=== PATIENT | female | born 1935 | race Caucasian/White ===

== ENCOUNTER 2017-04-23 15:17 | Observation (INO) ==
[~2017-04-23 15:17] MED LIST: ZOFRAN IV PRN
--- NOTE | 2017-04-23 16:05 | Diag Imaging Result Doc PS360 ---
EXAM: MRI LUMBAR SPINE W/O CONTRAST HISTORY: Acute LS pain after fall off bed with L2 fx? TECHNIQUE: Axial and sagittal images obtained in multiple sequences. COMPARISON: 08/25/2014 FINDINGS: There is abnormal signal within the superior endplates of the L1 and L2 vertebra. Mild loss of height to the superior endplate of the L2 vertebra. No definite loss of height to the L1 vertebra. No subluxation. Good alignment on the sagittal images. T12-L1: Normal disc. No spinal stenosis or cord compression. Neither neural foramen is narrowed. L1-2: Minimal disc bulge. There is at least moderate bilateral facet hypertrophy. This results in moderate spinal stenosis. Minimal narrowing of each neural foramen. L2-3: Small disc bulge. Moderate bilateral facet hypertrophy. There is moderate spinal stenosis with minimal narrowing of each neural foramen. L3-4: Questionable 1 to 2 mm of subluxation. There is severe bilateral facet hypertrophy. Moderate right lateral disc bulge. Findings result in severe spinal stenosis as well as moderate narrowing of the right neural foramen. L4-5: Prominent disc bulge. There is moderate bilateral facet hypertrophy. Findings result in severe spinal stenosis. There is moderate to marked narrowing of each neural foramen. L5-S1: Moderate disc bulge. There is narrowing to the disc space. No significant spinal stenosis. There is at least moderate narrowing of the right neural foraminal mild narrowing of the left foramen IMPRESSION: 1.Recent superior endplate compression fractures to the L1 and L2 vertebra. 2.Severe spinal stenosis at L3-4 and L4-5. Electronically signed by Hawk Hampton 04/23/2017 4:03 PM
[2017-04-23] MEDS: NORCO-7.5 PO PRN ×2 (17:10→21:22)
[2017-04-23] MEDS: POTASSIUM CHLORIDE 10 MEQ in NS 1,000 ML IV SCH (17:56)
[2017-04-23] MEDS ORDERED: MIRALAX PO ONE (18:57)
--- NOTE | 2017-04-23 20:11 | Diag Imaging Result Doc PS360 ---
EXAM: PELVIS W/O CONTRAST HISTORY: Fall from 5+ feet left posterior gluetal pain TECHNIQUE: CT pelvis without contrast. COMPARISON: None. FINDINGS: Neither femoral head is dislocated. No fracture to either hip. No widening to the pubic symphysis or to the sacroiliac joints. There is a vacuum disc at L5-S1 and there are degenerative changes to the lower lumbar spine. There are two left adnexal cysts. The largest measures 7.7 cm and the smaller measures 7.2 cm. There is a right adnexal cyst measuring 4.8 cm. Uterus has been removed. The bowel loops and pelvis are not dilated. The muscles about the bony pelvis are symmetric except for increased density in the left gluteal region which may represent a hematoma. IMPRESSION: 1.Small left gluteal hematoma, but no acute fracture. 2.Large bilateral adnexal cysts 3.Hysterectomy Electronically signed by Hawk Hampton 04/23/2017 8:08 PM
[2017-04-23] MEDS ORDERED: AMBIEN PO SCH (21:00)
[2017-04-23] MEDS ORDERED: PERICOLACE PO SCH (21:00)
[2017-04-24] MEDS: NORCO-7.5 PO PRN ×2 (05:40→11:12)
[2017-04-24 06:30] LABS: MANUAL DIFF NEEDED? NO
[2017-04-24 06:41] LABS: BASO% 0.6 % (0.0-0.8); EOS# 0.48 X1000 (0.0-0.7); EOS% 5.1 % (0.0-10.0); HEMATOCRIT 33.1 % (37.0-47.0); HEMOGLOBIN 11.2 g/dL (12.0-16.0); LYMPH# 0.56 X1000 (1.2-3.4); LYMPH% 5.9 % (20.5-51.1); MCH 31.5 PG (27-31); MCHC 33.8 g/dL (33-37); MONO# 0.59 X1000 (0.11-0.59); MONO% 6.2 % (1.7-9.3); MPV 10.1 FL (7.4-10.4); NEUT% 82.2 % (42.2-75.2); PLT 249 X1000 (130-400); RBC 3.56 XMIL (4.2-5.4)
--- NOTE | 2017-04-24 06:46 | HISTORY AND PHYSICAL ---
CHIEF COMPLAINT: Low back pain following a fall. HISTORY OF PRESENT ILLNESS: Ms. Acuña is a 81-year-old patient with a past medical history consistent with thyroid nodularity, nontoxic goiter, dyslipidemia, insomnia, idiopathic neuropathy, hypertension, atherosclerotic peripheral vascular disease involving the carotid system, venous insufficiency, diverticular disease, stress incontinence, climacteric state, family history of malignant neoplasm of the digestive organs, family history of malignant neoplasm of the kidney, family history of diabetes, personal history of impaired fasting glucose , impaired glucose tolerance, who presents less than 24 hours after a fall off of a bed while trying to change the rotational direction of a ceiling fan. She states that she was standing on her bed and lost her balance and fell, striking her left hip. It resulted in a large gluteal hematoma, difficulty with weightbearing, and excruciating mid to upper lumbar pain. An x-ray in the office demonstrates concavity of the L2 vertebrae, which is a new finding compared to previous lumbosacral spine films, as well as advanced degenerative changes throughout the lumbosacral spine , which is known historically. The patient also carries a diagnosis of spinal stenosis, which has been noted to be nonoperative historically. She is admitted to the Internal Medicine clinic for observation, further diagnostic workup, and orthopedic consultation, should an MRI be consistent with L1-L2 fracture. MEDICATIONS ON ADMISSION: Amitriptyline 25 mg p.o. at bedtime, valacyclovir 500 mg p.o. daily, valsartan hydrochlorothiazide 160/12.5 one p.o. b.i.d., estradiol 0.5 mg p.o. every other day, Pravachol 40 mg p.o. at bedtime, metformin 500 mg p.o. b.i.d., Ambien 5 mg p.o. at bedtime, and bisoprolol-hydrochlorothiazide 6.25/5 mg once daily. FAMILY HISTORY: Father , 60 years old, aortic aneurysmal disease. Mother , 83, secondary to liver cancer. Brother from pancreatic, kidney, and lung cancers, and one secondary to COPD. A sister at 74 years old secondary to lung cancer. SOCIAL STATUS: Patient is , with 2 children. Daughter at 61, son at 50 , and one adopted grandchild. 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 She is a nonsmoker. She drinks approximately 3+ drinks per month. HEALTH MAINTENANCE: Last colonoscopy in 2010. Last DEXA scan in 2013. Last EGD in 2010. Last eye exam in 2015. Last mammogram, 2014. Last Pap smear, 2012. Last annual exam, 01/30/2017. PHYSICAL EXAMINATION: VITAL SIGNS: In the office: Blood pressure 144/70, pulse at 92, saturating 98 % on room air. Temperature 99.6 degrees. Patient is 201 pounds, with a BMI of 31.95. HEENT: Normocephalic, atraumatic. Pupils are equal and reactive to light and accommodation. NECK: Soft and supple, without lymphadenopathy or bruits. CARDIOVASCULAR: Regular rate and rhythm, without murmurs, gallops, or rubs. LUNGS: Clear. ABDOMEN: Not assessed, secondary to patient's difficulty with lying flat. MUSCULOSKELETAL: Percussion of the lower thoracic and lumbosacral spine are negative for percussive tenderness. Paraspinal spasm and tenderness is noted on palpation. Patient with large area of ecchymosis on the left lateral gluteal region. Regional extension, flexion, side-bending, and rotation is not assessed secondary to pain. Patient is able to independently rise from a seated position with difficulty and discomfort. She is in a moderate amount of pain. RADIOLOGICAL STUDIES: Show a scallop deformity of the superior endplate of L2, as well as advanced degenerative changes throughout the lumbosacral spine. Changes are suspicious for occult/recent fracture. An MRI at the hospital on admission demonstrates evidence of recent and/or acute L1-L2 fracture, as well as extensive multilevel lumbosacral spinal stenosis. IMPRESSION: Acute fracture, L1-L2. Pain management as indicated. Patient is markedly improved with the addition of oral narcotics. We will follow through the evening with regards to scheduled pain medicines, and seek the opinion of orthopedics, as it relates to fitting for a thoracolumbar brace. I do not feel that these warrant kyphoplasty or surgical intervention, but certainly in the acute phase, she may have some issues with pain and mobility. She is inquiring about the possibility of home healthcare for post admission assistance. She is agreeable to spend the night here with anticipation of being discharged in the morning after overnight observation and ongoing pain management. The patient understands the course of treatment and plan. No further issues at this time. Note is dictated on the evening of admission. Patient seen in office 45minutes and then more than 30 minutes after admission to discuss MRI findings, dictation and clarify/review admission orders OV + PS. 04/24/2017 at 6:56am cc: DO VALERY Soto
[2017-04-24 06:55] LABS: INR 1.02; PROTIME 10.7 Seconds (9.2-11.7)
[2017-04-24 07:00] LABS: AGAP 12; ALBUMIN 3.8 g/dL (3.5-5.0); ALKALINE PHOSPHATASE 64 U/L (32-104); BUN 16 mg/dL (8-22); CALCIUM 8.1 mg/dL (8.8-10.2); CHLORIDE 99 mmol/L (98-107); COSMO 274; GOT 22 U/L (10-30); GPT 16 U/L (10-36); POTASSIUM 3.9 mmol/L (3.5-5.1); SODIUM 136 mmol/L (136-145); TCO2 25 mmol/L (25-35); TOTAL BILIRUBIN 0.86 mg/dL (0.20-1.00); TOTAL PROTEIN 6.1 g/dL (6.3-8.3)
[2017-04-24 07:59] VITALS: BP 121/59
[2017-04-24] MEDS: POTASSIUM CHLORIDE 10 MEQ in NS 1,000 ML IV SCH (08:34)
[2017-04-24] MEDS ORDERED: ELAVIL PO SCH (09:00)
[2017-04-24] MEDS ORDERED: ZIAC 5/6.25 MG PO SCH (09:00)
[2017-04-24] MEDS ORDERED: VALTREX PO SCH (09:00)
[2017-04-24] MEDS ORDERED: GLUCOPHAGE XR PO SCH (09:00)
--- NOTE | 2017-04-24 15:44 | CONSULTATION ---
DATE OF CONSULTATION: 04/24/2017 CHIEF COMPLAINT: Low back pain. HISTORY OF PRESENT ILLNESS: Ms. Acuña is a 81-year-old female who is experiencing low back pain following a fall in her home yesterday. She presented to primary care provider, Internal Medicine Clinic where further evaluation radiographic findings revealed a concavity of the L2 vertebrae. She was admitted for observation and further workup and during her admission she has had an MRI which is consistent with an L1 and L2 compression fracture that is stable and we were asked for further evaluation. Primary Care provider, Serge Stein. For allergies, past medical history, past surgical history, and current medications, see the admission history and physical. REVIEW OF SYSTEMS: A 10 point review of systems was reviewed with the patient and was otherwise negative other than what was stated in HPI. PHYSICAL EXAMINATION: General: Is a well-developed, well-nourished female, who is in no acute distress. She is alert and oriented, and able to articulate and answer all questions fully. HEENT: Head is normocephalic, atraumatic. Neck: Supple. Cardiovascular: She has 2+ pedal pulses. Lungs: Respirations are nonlabored. Abdomen: Nondistended. Musculoskeletal: She has pain with palpation of the lumbar spine but there are no step-offs noted. She has 5/5 strength of her lower extremities. Neurological: She discerned soft touch to her feet bilaterally. IMPRESSION: Stable L1 and L2 compression fractures. PLAN: We will order a lumbar corset for her to wear for comfort. Her MRI reveals that her compression fractures are stable and there was no loss of height that is significant. I have instructed her to follow up with Neurosurgery upon discharge home for further care. Dictated by RAMANDEEP Tucker for Shivam Macdonald MD cc: RAMANDEEP Tucker MD Jeffrey A. Johnson, DO
--- NOTE | 2017-05-02 17:06 | DISCHARGE SUMMARY ---
ADMISSION DATE: 04/23/2017 DISCHARGE DATE: 04/24/2017 DISCHARGE DIAGNOSES: 1. Acute superior endplate compression fractures of L1 and L2 secondary to traumatic fall off of a piece of furniture at home. 2. Severe and historical spinal stenosis involving lumbar region L3-L4 and L4-L5. Left gluteal. 3. Left gluteal hematoma. 4. Incidental bilateral adnexal cyst. 5. Post surgical menopause. 6. Anemia not otherwise specified with hemoglobin and hematocrit at 11.2 and 33.1. Further diagnostic workup indicated as an outpatient. 7. Hyperglycemia with fasting blood glucose at 109 mg/dL. CONSULTATIONS DURING ADMISSION: Orthopedics. PROCEDURES DURING ADMISSION: Lumbosacral spine on 04/[address] scan of the abdomen and pelvis on 04/23. HOSPITAL COURSE: The patient was admitted for back pain following a fall off of a bed while trying to attempt to change the fan direction rotation. She subsequently landed on her left side and left gluteal region and progressed with pain and difficulty standing and difficulty transferring from a seated to standing position as well as ambulation. An x-ray in the office demonstrating probable fracture abnormalities at L1 and L2. Patient admitted for further diagnostic studies including an MRI of the back confirming the diagnosis and fitting for back brace as well as orthopedic consultation. Her pain appeared to be well managed with oral narcotic therapy. On the night of admission, she was sitting up at the side of the bed stating that she was feeling much better with pain relief. She also was noted to have a large hematoma on the left gluteal region and complaining of some nonspecific weight bearing index with suspicion for possible subacute or occult pelvic fracture discussed and a CT scan of the bony pelvis failed to demonstrate any evidence of acute fracture. DISPOSITION: The patient was discharged to home on home medications with the exception of the addition of Meta 7.5 mg/325 1-2 every 6-8 hours p.r.n., as well as Olga-Colace 2 p.o. at bedtime p.r.n. constipation. She was continued on her Elavil at 25 mg p.o. at bedtime. Her Ziac 1 p.o. daily, metformin 500 mg once daily. Valtrex 500 mg once daily, valsartan hydrochlorothiazide 1 p.o. b.i.d., and Ambien 5 mg p.o. at bedtime. DISCHARGE INSTRUCTIONS: Patient is to follow up as discussed. No further issues at this time. Note is dictated following discharge. cc: Serge Stein,
== END 2017-04-24 11:37 | disposition home or self-care (01) ==
LOC: DIRADM → 3N 15:17
PROVIDERS: ADMIT Internal Medicine; ATTEND Internal Medicine